=== PATIENT | female | born 1950 | race Caucasian/White ===

== ENCOUNTER → 2019-09-02 | Outpatient (CLI) | payer OTHER | LOC: SJCVC 13:30 | DX: I49.1 Atrial premature depolarization (principal); I10 Essential (primary) hypertension; E78.5 Hyperlipidemia, unspecified; G47.33 Obstructive sleep apnea (adult) (pediatric); Z96.652 Presence of left artificial knee joint; Z79.899 Other long term (current) drug therapy ==